=== PATIENT | female | born 1985 | race Caucasian/White ===

== ENCOUNTER → 2025-06-29 12:36 | Outpatient (REF) | payer BC, SELFPAY | LOC: HWRAD 12:36 | PROVIDERS: ATTENDING PHYSICIAN Family Medicine | DX: R59.0 Localized enlarged lymph nodes (principal); R10.31 Right lower quadrant pain; R19.00 Intra-abdominal and pelvic swelling, mass and lump, unspecified site | CPT/HCPCS: 76705; 76882 ==